=== PATIENT | female | born 1950 | race Caucasian/White ===

== ENCOUNTER 2017-06-25 20:42 | Emergency (ER) | payer MEDICARE, MEDICAID ==
[2017-06-25 20:54] VITALS: BMI 25.6
[2017-06-25 21:00] VITALS: TEMP 98.2
[2017-06-25 21:54] LABS: BASO % 0.7 % (0.0-2.0); EOS # 0.3 K/uL (0.0-0.7); EOS % 3.7 % (0.0-4.0); HEMOGLOBIN 9.8 g/dL (11.0-16.0); LYMPH # 2.1 K/uL (1.0-4.3); LYMPH % 30.7 % (20.0-40.0); MEAN CELL VOLUME 79.6 fL (81.0-99.0); MEAN CORPUSCULAR HEMOGLOBIN 25.4 pg (27.0-31.0); MEAN CORPUSCULAR HGB CONC 31.9 g/dL (33.0-37.0); MEAN PLATELET VOLUME 7.2 fL (7.2-11.7); MONO # 0.5 K/uL (0.0-0.8); MONO % 7.6 % (0.0-10.0); NEUT % 57.3 % (50.0-75.0); NRBC % 0.1 % (0.0-2.0); RBC 3.85 Mil/uL (3.80-5.20); WHITE BLOOD COUNT 6.9 K/uL (4.8-10.8)
[2017-06-25 22:05] LABS: ALBUMIN 4.3 g/dL (3.5-5.0); ALT/SGPT 24 U/L (9-52); AST/SGOT 45 U/L (14-36); BLOOD UREA NITROGEN 31 mg/dL (7-17); CALCIUM 9.4 mg/dl (8.6-10.4); GFR AFRICAN-AMERICAN > 60; GFR NON-AFRICAN AMERICAN 50
[2017-06-25 22:07] LABS: PROTHROMBIN TIME 10.7 SECONDS (9.7-12.2)
[2017-06-25 23:32] VITALS: BP 114/76; PULSE 68; RESP 16; O2SAT 100
--- NOTE | 2017-06-26 00:22 | C.PDOC ---
History Of Present Illness 67 year old female with a Hx of panic attacks and anxiety presents to the ER with a complaint of a panic attack and anxiety episode that occurred earlier this evening. Patient was taking on the phone with a relative, they began to argue which triggered the panic attack and anxiety. Patient has had multiple episodes in the past; currently, she has no complaints. Chief Complaint (Nursing): Lower Extremity Problem/Injury History Per: Patient History/Exam Limitations: no limitations Onset/Duration Of Symptoms: Hrs Current Symptoms Are (Timing): Gone Recent travel outside of the [place]: No Past Medical History Reviewed: Historical Data, Nursing Documentation, Vital Signs Vital Signs: Last Vital Signs Temp 98.2 F 06/25/17 23:30 Pulse 68 06/25/17 23:30 Resp 16 06/25/17 23:30 BP 114/76 06/25/17 23:30 Pulse Ox 100 06/26/17 00:26 - Medical History PMH: Anemia, Anxiety, Arthritis, Bronchitis, Diabetes, HTN, Hypercholesterolemia , Hyperlipidemia, Seizures (Last July) Surgical History: Appendectomy Family History: States: Unknown Family Hx - Social History Hx Tobacco Use: No Hx Alcohol Use: No Hx Substance Use: No - Immunization History Hx Tetanus Toxoid Vaccination: No Hx Influenza Vaccination: No Hx Pneumococcal Vaccination: No Review Of Systems Constitutional: Negative for: Fever, Chills Cardiovascular: Negative for: Chest Pain, Palpitations Respiratory: Negative for: Cough, Shortness of Breath Gastrointestinal: Negative for: Nausea, Vomiting Psych: Positive for: Anxiety, Other (Panic attack) Physical Exam - Physical Exam Appears: Non-toxic Skin: Normal Color, Warm, Dry Head: Atraumatic, Normacephalic Eye(s): bilateral: Normal Inspection Oral Mucosa: Moist Chest: Symmetrical, No Tenderness Cardiovascular: Rhythm Regular Respiratory: Normal Breath Sounds, No Rales, No Rhonchi, No Wheezing Gastrointestinal/Abdominal: Soft, No Tenderness Neurological/Psych: Oriented x3, Normal Speech ED Course And Treatment - Laboratory Results Result Diagrams: 06/25/17 21:49 06/25/17 21:49 ECG: Interpreted By Me, Viewed By Me ECG Rhythm: Sinus Rhythm ECG Interpretation: Normal Rate From EC O2 Sat by Pulse Oximetry: 100 (Room air) Pulse Ox Interpretation: Normal Progress Note: Blood work ordered. Toradol administered. Disposition - Disposition Referrals: Ana Mendes MD [Staff Provider] - Disposition: HOME/ ROUTINE Disposition Time: 23:10 Condition: GOOD Additional Instructions: Thank you for letting us take care of you today. The emergency medical care you received today was directed at your acute symptoms. If you were prescribed any medication, please fill it and take as directed. It may take several days for your symptoms to resolve. Return to the Emergency Department if your symptoms worsen, do not improve, or if you have any other problems. Please contact your doctor or call one of the physicians/clinics you have been referred to that are listed on the Patient Visit Information form that is included in your discharge packet. Bring any paperwork you were given at discharge with you along with any medications you are taking to your follow up visit. Our treatment cannot replace ongoing medical care by a primary care provider (PCP) outside of the emergency department. Thank you for allowing the [facility] team to be part of your care today. Follow up with your primary care doctor in 2-3 days for re-evaluation and further management. Instructions: Generalized Anxiety Disorder (DC) Forms: [employer] (Frisian) - Clinical Impression Clinical Impression: Anxiety - Scribe Statement The provider has reviewed the documentation as recorded by the Scribe Domo Canchola All medical record entries made by the Scribe were at my direction and personally dictated by me. I have reviewed the chart and agree that the record accurately reflects my personal performance of the history, physical exam, medical decision making, and the department course for this patient. I have also personally directed, reviewed, and agree with the discharge instructions and disposition.
--- NOTE | 2017-06-26 15:27 | CARD ---
APPROVED REPORT EKG Measurement Heart [id number] <Conclusion> Normal sinus rhythm Normal ECG
== END 2017-06-25 23:47 | disposition home or self-care (01) ==
LOC: C.ER 20:42
DX: F41.9 Anxiety disorder, unspecified (principal); I10 Essential (primary) hypertension; E78.00 Pure hypercholesterolemia, unspecified; E11.9 Type 2 diabetes mellitus without complications
CPT/HCPCS: 80053; 82948; 85025; 85610; 85730; 93005; 96374; 99285; J1885

== ENCOUNTER 2017-07-24 03:53 | Emergency (ER) | payer MEDICARE, MEDICAID ==
[2017-07-24 03:53] VITALS: BMI 25.6
[2017-07-24] MEDS ORDERED: Sodium Chloride 0.9% 1,000 ML IV ONE (04:49)
--- NOTE | 2017-07-24 04:59 | C.PDOC ---
History Of Present Illness 67 year old with PMHx of DM presents to the ED c/o headache that radiates down to her right neck and shoulder for the past 1 week. Patient reports today at 03: 00 pain worsened. Patient reports headache is associated blurry vision, chills, nasal congestion. Patient denies injury, fall, trauma, cough, runny nose, photophobia, numbness, weakness. Time Seen by Provider: 07/24/17 04:25 Chief Complaint (Nursing): Headache History Per: Patient History/Exam Limitations: no limitations Onset/Duration Of Symptoms: Days Current Symptoms Are (Timing): Still Present Quality: "Pain" Preceeding Symptoms: None Associated Symptoms: Blurred Vision Recent travel outside of the [place]: No Additional History Per: Patient Past Medical History Reviewed: Historical Data, Nursing Documentation, Vital Signs Vital Signs: Last Vital Signs Temp 98.5 F 07/24/17 06:30 Pulse 83 07/24/17 06:30 Resp 16 07/24/17 06:30 BP 139/72 07/24/17 06:30 Pulse Ox 97 07/24/17 06:57 - Medical History PMH: Anemia, Anxiety, Arthritis, Bronchitis, Diabetes, HTN, Hypercholesterolemia , Hyperlipidemia, Seizures (Last July) Denies: Chronic Kidney Disease Surgical History: Appendectomy Family History: States: Unknown Family Hx - Social History Hx Tobacco Use: No Hx Alcohol Use: No Hx Substance Use: No - Immunization History Hx Tetanus Toxoid Vaccination: No Hx Influenza Vaccination: No Hx Pneumococcal Vaccination: No Review Of Systems Constitutional: Positive for: Chills. Negative for: Fever ENT: Positive for: Ear Pain, Nose Discharge, Nose Congestion. Negative for: Throat Pain, Throat Swelling Cardiovascular: Negative for: Chest Pain Respiratory: Negative for: Cough, Shortness of Breath Gastrointestinal: Negative for: Nausea, Vomiting, Abdominal Pain Musculoskeletal: Positive for: Neck Pain, Shoulder Pain Skin: Negative for: Rash Neurological: Positive for: Headache. Negative for: Weakness, Numbness, Dizziness Physical Exam - Physical Exam Appears: Non-toxic, No Acute Distress Skin: Normal Color, Warm, Dry, No Rash Head: Atraumatic, Normacephalic, Swelling (minimal bilateral periorbital region) Eye(s): bilateral: Normal Inspection, PERRL, EOMI Ear(s): Bilateral: Normal Nose: No Discharge Oral Mucosa: Moist Throat: Normal, No Erythema, No Exudate Neck: Normal ROM, Supple Lymphatic: Adenopathy (anterior cervical lymphadenopathy) Chest: Symmetrical Cardiovascular: Rhythm Regular, No Friction Rub, No Murmur Respiratory: Normal Breath Sounds, No Rales, No Rhonchi, No Wheezing Gastrointestinal/Abdominal: Soft, No Tenderness, No Guarding, No Rebound Back: Normal Inspection, No CVA Tenderness Extremity: Normal ROM, No Tenderness, Capillary Refill (< 2 seconds), No Swelling, Other (chronic skin changes in B/L legs) Extremity: Bilateral: Atraumatic Pulses: Left Dorsalis Pedis: Normal, Right Dorsalis Pedis: Normal Neurological/Psych: Oriented x3, Normal Speech, Normal Motor, Other (no focal deficits) ED Course And Treatment - Laboratory Results Result Diagrams: 07/24/17 05:09 07/24/17 05:09 O2 Sat by Pulse Oximetry: 97 (ON RA) Pulse Ox Interpretation: Normal - CT Scan/US CT head Other Rad Studies (CT/US): Read By Radiologist, Radiology Report Reviewed CT/US Interpretation: FINDINGS: Brain: Possible bilateral ophthalmic surgery. Mild cerebral and cerebellar volume loss. Minimal. hypodensity is seen in the periventricular cerebral white matter. No hemorrhage. Ventricles: Unremarkable. No ventriculomegaly. Bones/joints: Mandibular partial dentures in place. No acute fracture. Soft tissues: Unremarkable. Sinuses: Left sphenoid and right posterior ethmoid sinus mucus retention cyst and/or polyp. Patchy. sinus disease. Mastoid air cells: Patchy mass. IMPRESSION: No evidence of an acute intracranial hemorrhage, midline shift or mass effect is identified. Thank you for allowing us to participate in the care of your patient. Dictated and Authenticated by: Joon Landers MD. 07/24/2017 5:50 AM Eastern Time ([place] & [place]) CT neck Other Rad Studies (CT/US): Read By Radiologist, Radiology Report Reviewed CT/US Interpretation: FINDINGS: Nasopharynx: Prominent soft tissue in the nasopharynx which can represent a benign cyst. Oropharynx: Unremarkable. No significant tonsillar enlargement. Hypopharynx: Unremarkable. Larynx: Unremarkable. Normal epiglottis. Trachea: Unremarkable. Retropharyngeal space : Unremarkable. Submandibular/parotid glands: There are bilateral parotid salivary gland calcifications. There is fatty. infiltration of bilateral parotid and submandibular salivary glands. Thyroid: Heterogeneous enlargement of thyroid gland. Bones/joints: No acute fracture. Soft tissues: Unremarkable. Vasculature: No acute findings. Lymph nodes: Submandibular lymph nodes. Bilateral cervical chain lymph nodes. Dental: Edentulous maxilla. Esophagus: Nonspecific gaseous distention of the esophagus. Correlation with clinical data is. recommended if presbyesophagus is clinically suspected. Lung apices: The visualized portions of lung apices are clear. IMPRESSION: No acute findings. Thank you for allowing us to participate in the care of your patient. Dictated and Authenticated by: Joon Landers MD. 07/24/2017 6:17 AM Eastern Time ([place] & [place]) CT sinuses Other Rad Studies (CT/US): Read By Radiologist, Radiology Report Reviewed CT/US Interpretation: FINDINGS: Maxillary sinuses: Unremarkable. No air-fluid levels. Sphenoid sinuses: There is a large left sphenoid sinus because retention cyst and/or polyp. No airfluid. levels. Frontal sinuses: Unremarkable. No air-fluid levels. Ethmoid air cells: Small right posterior ethmoid mucus retention cyst and/or polyp. No air-fluid. levels. Nasal cavity/ septum: No acute findings. Mastoid air cells: There is evidence of right mastoid surgery. Patchy right mastoid disease. Bones/joints: No acute fracture. Soft tissues: Bilateral parotid salivary gland calcifications. Fatty infiltration of the parotid glands. Orbits: There is evidence of bilateral eye surgery. The visualized portions of globe appears intact. Dental: Edentulous maxilla. Ostiomeatal units: The ostiomeatal units are patent bilaterally. There is mild narrowing of the left. ostiomeatal unit. Mild hazy sinus disease. IMPRESSION: 1. Sinus disease as described. No definite air-fluid levels are identified. Thank you for allowing us to participate in the care of your patient. Dictated and Authenticated by: Joon Landers MD. 07/24/2017 6:14 AM Eastern Time ([place] & [place]) Progress Note: Plan: - CT head. - VBG. - Labs. - CXR. - Reglan 10 mg IV. - IV fluids. - Toradol 15 mg IM. - Urine culture. - UA Medical Decision Making Medical Decision Making: The case was discussed with Dr. Mendes (PMD) who states the patient does not require admission at this time as the patient is at her baseline. Patient has normal vitals, normal WBC, but lactate of 3, Patient does not have signs of sepsis at this time. The patient was found to be hypokalemic and anemic which is the patient's baseline according to the PMD, Dr. Mendes. Patient was found to have sinus disease on CT and will treat. CT is otherwise unremarkable. On re-exam, the patient reports improvement of symptoms. Lungs are CTA, heart is RRR, ambulatory in the ED with steady gait. Abdomen is soft, non-tender and the patient is tolerating PO well. Disposition - Disposition Referrals: Ana Mendes MD [Staff Provider] - Disposition: HOME/ ROUTINE Disposition Time: 06:52 Condition: FAIR Additional Instructions: Follow up with Dr. Mendes within 1-2 days without fail. Return tothe ED as soon as possible if worsened. Prescriptions: Acetaminophen/Butalbital/Caf [Fioricet] 1 tab PO TID PRN #20 tab PRN Reason: Headache Amoxicillin/Clavulanate [Augmentin 875 MG-125 MG] 1 tab PO BID #14 tab Loratadine [Claritin] 10 mg PO DAILY #10 tab Instructions: Hypokalemia (DC), Sinusitis, Adult (DC) Forms: [employer] (Wolof) - Clinical Impression Clinical Impression: Sinusitis, Hypokalemia, Anemia - PA / AUDIT REVIEWER / Resident Statement MD/DO has reviewed & agrees with the documentation as recorded. - Scribe Statement The provider has reviewed the documentation as recorded by the Scribe Channing Merchant All medical record entries made by the Aguilar[place]milton were at my direction and personally dictated by me. I have reviewed the chart and agree that the record accurately reflects my personal performance of the history, physical exam, medical decision making, and the department course for this patient. I have also personally directed, reviewed, and agree with the discharge instructions and disposition.
[2017-07-24 05:13] LABS: EOS # 0.3 K/uL (0.0-0.7)
[2017-07-24 05:24] LABS: PROTHROMBIN TIME 10.5 SECONDS (9.7-12.2)
[2017-07-24 05:25] LABS: VENOUS BLOOD GAS BASE EXCESS 4.9 mmol/L (0.0-2.0); VENOUS BLOOD GAS PCO2 53 mmHg (40-60); VENOUS BLOOD GAS PO2 30 mm/Hg (30-55); VENOUS BLOOD PH 7.38 (7.32-7.43)
[2017-07-24 05:27] LABS: BASO % 0.7 % (0.0-2.0); HEMOGLOBIN 8.9 g/dL (11.0-16.0); LYMPH # 1.8 K/uL (1.0-4.3); LYMPH % 28.8 % (20.0-40.0); MEAN CELL VOLUME 78.2 fL (81.0-99.0); MEAN CORPUSCULAR HEMOGLOBIN 25.4 pg (27.0-31.0); MEAN CORPUSCULAR HGB CONC 32.5 g/dL (33.0-37.0); MEAN PLATELET VOLUME 7.1 fL (7.2-11.7); MONO # 0.4 K/uL (0.0-0.8); MONO % 6.7 % (0.0-10.0); NEUT # 3.8 K/uL (1.8-7.0); NEUT % 58.8 % (50.0-75.0); NRBC % 0.1 % (0.0-2.0); RBC 3.52 Mil/uL (3.80-5.20); WHITE BLOOD COUNT 6.4 K/uL (4.8-10.8)
[2017-07-24] MEDS ORDERED: Sodium Chloride 0.9% 0 ML IV ONE (05:44)
[2017-07-24] MEDS ORDERED: Sodium Chloride 0.9% 1,000 ML ONE (05:44)
[2017-07-24] MEDS ORDERED: Sodium Chloride 0.9% 100 ML ONE (05:45)
--- NOTE | 2017-07-24 05:50 | CT ---
EXAM: CT Head Without Intravenous Contrast CLINICAL HISTORY: 67 years old, female; Pain; Headache; Headache not specified; Additional info: Headache, dizziness TECHNIQUE: Axial computed tomography images of the head/brain without intravenous contrast. All CT scans at this facility use one or more dose reduction techniques, viz.: automated exposure control; ma/kV adjustment per patient size (including targeted exams where dose is matched to indication; i.e. head); or iterative reconstruction technique. 311 images are submitted. Axial images are submitted in brain and bone windows. Coronal and sagittal reformatted images were created and reviewed. Axial reformatted images were created and reviewed. COMPARISON: CT - HEAD W/O CONTRAST 2015-01-26 23:55 FINDINGS: Brain: Possible bilateral ophthalmic surgery. Mild cerebral and cerebellar volume loss. Minimal hypodensity is seen in the periventricular cerebral white matter. No hemorrhage. Ventricles: Unremarkable. No ventriculomegaly. Bones/joints: Mandibular partial dentures in place. No acute fracture. Soft tissues: Unremarkable. Sinuses: Left sphenoid and right posterior ethmoid sinus mucus retention cyst and/or polyp. Patchy sinus disease. Mastoid air cells: Patchy mastoid disease. Possible evidence for right mastoid surgery. Dental: Edentulous maxilla. IMPRESSION: No evidence of an acute intracranial hemorrhage, midline shift or mass effect is identified.
[2017-07-24 05:58] LABS: ALB/GLOB RATIO 1.1 (1.0-2.1); ALBUMIN 4.5 g/dL (3.5-5.0); ALT/SGPT 23 U/L (9-52); AST/SGOT 37 U/L (14-36); BLOOD UREA NITROGEN 20 mg/dL (7-17); CALCIUM 9.3 mg/dl (8.6-10.4); GFR AFRICAN-AMERICAN > 60; GFR NON-AFRICAN AMERICAN > 60
[2017-07-24] MEDS ORDERED: Potassium Chloride 20 mEq/15 ml LIQ UD PO STA (06:01)
[2017-07-24] MEDS ORDERED: Potassium Chloride 20 mEq/15 ml LIQ UD ONE (06:08)
--- NOTE | 2017-07-24 06:14 | CT ---
EXAM: CT Maxillofacial face and Sinuses Without Intravenous Contrast CLINICAL HISTORY: 67 years old, female; Pain and signs and symptoms; Mass, lump, or swelling; Location not specified; Face pain; Additional info: Pain and swelling to the face, R/O sinusitis TECHNIQUE: Computed tomography images of the face and maxillofacial sinuses without intravenous contrast. All CT scans at this facility use one or more dose reduction techniques, viz.: automated exposure control; ma/kV adjustment per patient size (including targeted exams where dose is matched to indication; i.e. head); or iterative reconstruction technique. 255 images are submitted. Coronal and sagittal reformatted images were created and reviewed of the face and sinuses. COMPARISON: No relevant prior studies available. FINDINGS: Maxillary sinuses: Unremarkable. No air-fluid levels. Sphenoid sinuses: There is a large left sphenoid sinus because retention cyst and/or polyp. No air-fluid levels. Frontal sinuses: Unremarkable. No air-fluid levels. Ethmoid air cells: Small right posterior ethmoid mucus retention cyst and/or polyp. No air-fluid levels. Nasal cavity/septum: No acute findings. Mastoid air cells: There is evidence of right mastoid surgery. Patchy right mastoid disease. Bones/joints: No acute fracture. Soft tissues: Bilateral parotid salivary gland calcifications. Fatty infiltration of the parotid glands. Orbits: There is evidence of bilateral eye surgery. The visualized portions of globe appears intact. Dental: Edentulous maxilla. Ostiomeatal units: The ostiomeatal units are patent bilaterally. There is mild narrowing of the left ostiomeatal unit. Mild hazy sinus disease. IMPRESSION: 1. Sinus disease as described. No definite air-fluid levels are identified.
--- NOTE | 2017-07-24 06:18 | CT ---
EXAM: CT Neck Without Intravenous Contrast CLINICAL HISTORY: 67 years old, female; Pain and signs and symptoms; Mass, lump, or swelling in neck; Neck pain; Additional info: Pain and swelling to the left side of the neck TECHNIQUE: Axial computed tomography images of the neck without intravenous contrast. All CT scans at this facility use one or more dose reduction techniques, viz.: automated exposure control; ma/kV adjustment per patient size (including targeted exams where dose is matched to indication; i.e. head); or iterative reconstruction technique. 255 images are submitted. Coronal and sagittal reformatted images were created and reviewed. COMPARISON: No relevant prior studies available. FINDINGS: Nasopharynx: Prominent soft tissue in the nasopharynx which can represent a benign cyst. Oropharynx: Unremarkable. No significant tonsillar enlargement. Hypopharynx: Unremarkable. Larynx: Unremarkable. Normal epiglottis. Trachea: Unremarkable. Retropharyngeal space: Unremarkable. Submandibular/parotid glands: There are bilateral parotid salivary gland calcifications. There is fatty infiltration of bilateral parotid and submandibular salivary glands. Thyroid: Heterogeneous enlargement of thyroid gland. Bones/joints: No acute fracture. Soft tissues: Unremarkable. Vasculature: No acute findings. Lymph nodes: Submandibular lymph nodes. Bilateral cervical chain lymph nodes. Dental: Edentulous maxilla. Esophagus: Nonspecific gaseous distention of the esophagus. Correlation with clinical data is recommended if presbyesophagus is clinically suspected. Lung apices: The visualized portions of lung apices are clear. IMPRESSION: No acute findings.
[2017-07-24 06:32] VITALS: TEMP 98.5
[2017-07-24 06:52] VITALS: O2SAT 97
--- NOTE | 2017-07-24 07:52 | RAD ---
HISTORY: Sepsis Patient COMPARISON: 12/28/2016 FINDINGS: LUNGS: No interval consolidation. Lung volumes slightly less than before PLEURA: No significant pleural effusion identified, no pneumothorax apparent. CARDIOVASCULAR: Heart size probably top-normal -similar OSSEOUS STRUCTURES: No significant abnormalities. VISUALIZED UPPER ABDOMEN: Normal. OTHER FINDINGS: None. IMPRESSION: No interval active disease.
[2017-07-24 08:03] VITALS: BP 128/74; PULSE 68
[2017-07-24 08:24] VITALS: RESP 18
== END 2017-07-24 08:24 | disposition home or self-care (01) ==
LOC: C.ER 03:53
DX: J32.9 Chronic sinusitis, unspecified (principal); E87.6 Hypokalemia; D64.9 Anemia, unspecified; I10 Essential (primary) hypertension; E11.9 Type 2 diabetes mellitus without complications; E78.00 Pure hypercholesterolemia, unspecified
CPT/HCPCS: 70450; 70486; 70490; 71045; 80053; 82803; 82948; 83735; 84100; 85025; 85610; 85730; 96361; 96374; 96375; 99285; J1885; J2765; J3480; J7030

== ENCOUNTER 2018-03-20 10:31 | Outpatient (CLI) | payer MEDICARE, MEDICAID | END 2018-03-20 10:32 | disposition home or self-care (01) | LOC: C.LAB 10:31 | DX: N18.3 Chronic kidney disease, stage 3 (moderate) (principal) ==

== ENCOUNTER 2018-05-10 09:33 | Observation (INO) | payer MEDICARE, MEDICAID | END 2018-05-11 14:42 | disposition home or self-care (01) | LOC: C.ER 09:33 → C.9E 11:56 → C.6T 20:03 ==

== ENCOUNTER 2018-06-11 10:01 | Outpatient (CLI) | payer MEDICARE, MEDICAID | END 2018-06-11 13:40 | disposition still patient (30) | LOC: C.LAB 10:01 ==

== ENCOUNTER 2018-06-11 13:41 | Emergency (ER) | payer MEDICARE, MEDICAID ==
[2018-06-11 13:41] VITALS: BMI 25.6
--- NOTE | 2018-06-11 14:42 | C.PDOC ---
History Of Present Illness 68 year old female sent to ED by her account liaison hospice (Dr. Kimball) for evaluation of elevated potassium levels noticed on out-patient blood work done today. Patient reports that she has been experiencing headache and productive cough for 2-3 days. She denies chest pain, SOB, fever, palpitations, abdominal pain, nausea/vomiting. Time Seen by Provider: 06/11/18 13:49 Chief Complaint (Nursing): Abnormal Labs History Per: Patient History/Exam Limitations: no limitations Onset/Duration Of Symptoms: Days (2-3) Current Symptoms Are (Timing): Still Present Past Medical History Reviewed: Historical Data, Nursing Documentation, Vital Signs Vital Signs: Last Vital Signs Temp 97.7 F 06/11/18 13:43 Pulse 63 06/11/18 13:43 Resp 20 06/11/18 13:43 BP 159/84 H 06/11/18 13:43 Pulse Ox 99 06/11/18 13:43 - Medical History PMH: Anemia, Anxiety, Arthritis, Bronchitis, Diabetes, HTN, Hypercholesterolemia, Hyperlipidemia, Seizures (Last July) Surgical History: Appendectomy Family History: States: No Known Family Hx - Social History Hx Tobacco Use: No Hx Alcohol Use: No Hx Substance Use: No - Immunization History Hx Tetanus Toxoid Vaccination: No Hx Influenza Vaccination: No Hx Pneumococcal Vaccination: No Review Of Systems Constitutional: Negative for: Fever, Chills, Weakness Cardiovascular: Negative for: Chest Pain Respiratory: Positive for: Cough, Sputum. Negative for: Shortness of Breath Gastrointestinal: Negative for: Nausea, Vomiting, Abdominal Pain, Diarrhea Genitourinary: Negative for: Dysuria, Hematuria Neurological: Positive for: Headache Physical Exam - Physical Exam Appears: Well, Non-toxic, No Acute Distress Skin: Normal Color, Warm, Dry, No Rash Oral Mucosa: Moist Neck: Supple Cardiovascular: Rhythm Regular Respiratory: Normal Breath Sounds, No Accessory Muscle Use, No Rales, No Rhonchi, No Wheezing Gastrointestinal/Abdominal: Normal Exam, Bowel Sounds, Soft, No Tenderness Extremity: No Pedal Edema, No Calf Tenderness Neurological/Psych: Oriented x3 ED Course And Treatment - Laboratory Results Result Diagrams: 06/11/18 14:32 06/11/18 15:46 ECG: Interpreted By Me, Viewed By Me (NSR 63 bpm, normal axis, no acute ST/T wave changes) ECG Interpretation: Normal O2 Sat by Pulse Oximetry: 99 (RA) Pulse Ox Interpretation: Normal - Other Rad CXR X-Ray: Interpreted by Me, Viewed By Me Interpretation: IMPRESSION: Possible atelectasis and/or infiltrate right middle lobe. Progress Note: Blood work, CXR ordered and reviewed. Patient given hyperkalemia cocktail in the ED. Plan to repeat K at 7pm as per Dr. Kimball. - Physician Consult Information Physician Contacted: Jeff Kimball Outcome Of Conversation: Discussed patient with her account liaison hospice, he agrees with hyperkalemia cocktail and would like K repeated later. If K drops and is closer to 5, patient can later be discharged , may possiby increase Veltassa dose to BID. Discussed patient with PMD Dr. Mendes, who is in agreement. Disposition - Disposition Disposition Time: 19:00 Condition: STABLE Prescriptions: Azithromycin 1 tab PO DAILY #6 tab Forms: [employer] (Sinhala) - Clinical Impression Clinical Impression: Bronchitis, Hyperkalemia - Scribe Statement The provider has reviewed the documentation as recorded by the Scribe (Mery Rodríguez) All medical record entries made by the Scribe were at my direction and personally dictated by me. I have reviewed the chart and agree that the record accurately reflects my personal performance of the history, physical exam, medical decision making, and the department course for this patient. I have also personally directed, reviewed, and agree with the discharge instructions and disposition. Physician Patient Turnover Patient Signed Over To: Olivia Truong Handoff Comments: pending repeat K, discuss with nephrology
[2018-06-11 14:51] LABS: BASO % 0.6 % (0.0-2.0); EOS # 0.1 K/uL (0.0-0.7); EOS % 2.9 % (0.0-4.0); HEMOGLOBIN 8.8 g/dL (11.0-16.0); LYMPH # 1.2 K/uL (1.0-4.3); LYMPH % 25.5 % (20.0-40.0); MEAN CELL VOLUME 81.5 fL (81.0-99.0); MEAN CORPUSCULAR HGB CONC 31.9 g/dL (33.0-37.0); MEAN PLATELET VOLUME 7.4 fL (7.2-11.7); MONO # 0.2 K/uL (0.0-0.8); MONO % 5.2 % (0.0-10.0); NEUT # 3.2 K/uL (1.8-7.0); NEUT % 65.8 % (50.0-75.0); NRBC % 0.1 % (0.0-2.0); RBC 3.37 Mil/uL (3.80-5.20); RED CELL DISTRIBUTION WIDTH 13.7 % (11.5-14.5); WHITE BLOOD COUNT 4.8 K/uL (4.8-10.8)
--- NOTE | 2018-06-11 15:14 | RAD ---
Date of service: 06/11/2018 HISTORY: COUGH COMPARISON: Made with chest 05/10/2018. TECHNIQUE: 1 view obtained. FINDINGS: LUNGS: Possible atelectasis and/or infiltrate right middle lobe PLEURA: No significant pleural effusion identified, no pneumothorax apparent. CARDIOVASCULAR: No aortic atherosclerotic calcification present. Normal cardiac size. No pulmonary vascular congestion. OSSEOUS STRUCTURES: No significant abnormalities. VISUALIZED UPPER ABDOMEN: Normal. OTHER FINDINGS: None. IMPRESSION: Possible atelectasis and/or infiltrate right middle lobe.
[2018-06-11 16:10] LABS: ALB/GLOB RATIO 1.2 (1.0-2.1); ALBUMIN 4.3 g/dL (3.5-5.0); CALCIUM 9.9 mg/dl (8.6-10.4)
[2018-06-11] MEDS ORDERED: Calcium Gluconate 4.65 MEQ in Dextrose 5% In Water 100 ML IV ONE (16:20)
[2018-06-11] MEDS ORDERED: (Novolin R) Insulin Human Regular 100 units/ml vial IVP ONE (16:20)
[2018-06-11] MEDS ORDERED: Sodium Bicarbonate (8.4%) 50 Meq Syringe IVP ONE (16:21)
[2018-06-11] MEDS ORDERED: Dextrose 50% SYRINGE Inj (50 ml) IVP STA (16:21)
[2018-06-11] MEDS ORDERED: Albuterol 0.083% Inhal Sol (2.5 mg/3 mL) UD IH STA (16:38)
[2018-06-11] MEDS ORDERED: Calcium Gluconate 4.65 mEq/10 ml Inj ONE (16:42)
[2018-06-11] MEDS ORDERED: Dextrose 50% SYRINGE Inj (50 ml) ONE (16:43)
[2018-06-11] MEDS ORDERED: Sodium Bicarbonate (8.4%) 50 mEq Vial ONE (16:43)
[2018-06-11] MEDS ORDERED: (Novolin R) Insulin Human Regular 100 units/ml vial ONE (16:48)
[2018-06-11] MEDS ORDERED: Albuterol 0.083% Inhal Sol (2.5 mg/3 mL) UD ONE (17:14)
[2018-06-11 20:04] VITALS: BP 149/70; PULSE 61; RESP 12; TEMP 97.6; O2SAT 100
--- NOTE | 2018-06-13 14:04 | CARD ---
APPROVED REPORT Date of service: 06/11/2018 EKG Measurement Heart [id number] QTc0 <Conclusion> No QRS complexes found, no ECG analysis possible
== END 2018-06-11 20:44 | disposition home or self-care (01) ==
LOC: C.ER 13:41
DX: E87.5 Hyperkalemia (principal); J40 Bronchitis, not specified as acute or chronic
CPT/HCPCS: 36415; 71045; 80053; 84132; 85025; 93005; 94640; 96365; 96375; 99285; J0610

== ENCOUNTER 2018-06-17 10:13 | Outpatient (CLI) | payer MEDICARE, MEDICAID | END 2018-06-17 10:14 | disposition home or self-care (01) | LOC: C.LAB 10:13 | DX: E87.5 Hyperkalemia (principal); E08.321 Diabetes mellitus due to underlying condition with mild nonproliferative diabetic retinopathy with macular edema ==

== ENCOUNTER 2018-07-17 10:04 | Outpatient (CLI) | payer MEDICARE, MEDICAID | END 2018-07-17 10:05 | disposition home or self-care (01) | LOC: C.VASC 10:04 ==

== ENCOUNTER 2018-07-20 11:10 | Emergency (ER) | payer MEDICARE, MEDICAID ==
[2018-07-20 11:10] VITALS: BMI 25.6
[2018-07-20] MEDS ORDERED: Albuterol-Ipratrop 3 mg / 0.5 (3 ml) UD INH STA (11:50)
[2018-07-20] MEDS ORDERED: Albuterol-Ipratrop 3 mg / 0.5 (3 ml) UD ONE (11:57)
--- NOTE | 2018-07-20 12:11 | C.PDOC ---
History Of Present Illness 68 year old female with a hx of HTN and HLD presents for evaluation of LT sided CP pain associated with mild cough for a few days. Pt notes LT sided CP radiates to the the LT shoulder. Reports having a (-) stress test in 2016. Denies fever, chills, nausea, vomiting, diarrhea, numbness, tingling, and any other associated symptoms. Time Seen by Provider: 07/20/18 11:34 Chief Complaint (Nursing): Chest Pain History Per: Patient History/Exam Limitations: no limitations Onset/Duration Of Symptoms: Days Current Symptoms Are (Timing): Still Present Associated Symptoms: Other (mild cough. ) Recent travel outside of the [place]: No Past Medical History Reviewed: Historical Data, Nursing Documentation, Vital Signs Vital Signs: Last Vital Signs Temp 98.6 F 07/20/18 11:13 Pulse 71 07/20/18 11:13 Resp 12 07/20/18 11:35 BP 150/82 07/20/18 11:13 Pulse Ox 98 07/20/18 11:35 Primary Care Provider: Ana Mendes - Medical History PMH: Anemia, Anxiety, Arthritis, Bronchitis, Diabetes, HTN, Hypercholesterolemia, Hyperlipidemia, Seizures (Last July) Denies: Chronic Kidney Disease Surgical History: Appendectomy Family History: States: Unknown Family Hx - Social History Hx Tobacco Use: No Hx Alcohol Use: No Hx Substance Use: No - Immunization History Hx Tetanus Toxoid Vaccination: No Hx Influenza Vaccination: No Hx Pneumococcal Vaccination: No Review Of Systems Except As Marked, All Systems Reviewed And Found Negative. Constitutional: Negative for: Fever, Chills Cardiovascular: Positive for: Chest Pain (left-sided. ) Respiratory: Positive for: Cough (mild. secondary to CP. ) Gastrointestinal: Negative for: Nausea, Vomiting, Diarrhea Neurological: Negative for: Weakness, Numbness, Incoordination Physical Exam - Physical Exam Appears: Non-toxic, No Acute Distress Skin: Warm, Dry Head: Atraumatic Eye(s): bilateral: Normal Inspection Oral Mucosa: Moist Neck: Normal ROM, Supple Chest: Symmetrical, No Deformity Cardiovascular: Rhythm Regular, No Murmur Respiratory: No Rales, No Rhonchi, Wheezing (scattered. ) Gastrointestinal/Abdominal: Normal Exam, Soft, No Tenderness Extremity: Bilateral: Atraumatic, Normal Color And Temperature, Normal ROM Neurological/Psych: Oriented x3, Normal Speech, Normal Cognition ED Course And Treatment - Laboratory Results Result Diagrams: 07/20/18 12:16 07/20/18 12:16 ECG: Interpreted By Me, Viewed By Me ECG Rhythm: Sinus Rhythm Interpretation Of ECG: no STW wave changes Rate From EC O2 Sat by Pulse Oximetry: 98 (RA) Pulse Ox Interpretation: Normal Medical Decision Making Medical Decision Making: cp ro acs pna bronchitis. Initial plan: -EKG -Blood sent. -CXR -Duoneb -Urinalysis Progress/Update: Pt left AMA. no tachy no sob. pe unlikely. cxr neg as bruce d by me. trop neg. multiple cardiac risk factor request obs for cards eval, possible stresss. pt refesuse states will return with worsening. wheezing improve.d Disposition - Disposition Referrals: Jeff Lovell MD [Staff Provider] - Disposition: AGAINST MEDICAL ADVICE Disposition Time: 13:00 Condition: GOOD Additional Instructions: return toe r with worsening symptoms or concerns. Instructions: Chest Pain, Acute Bronchitis, Leaving Against Medical Advice Forms: [employer] ([place]) - Clinical Impression Clinical Impression: Chest pain - Scribe Statement The provider has reviewed the documentation as recorded by the Scribe (Imelda Matt) Provider Attestation: All medical record entries made by the Scribe were at my direction and personally dictated by me. I have reviewed the chart and agree that the record accurately reflects my personal performance of the history, physical exam, medical decision making, and the department course for this patient. I have also personally directed, reviewed, and agree with the discharge instructions and disposition.
[2018-07-20 12:23] LABS: BASO % 0.9 % (0.0-2.0); EOS # 0.2 K/uL (0.0-0.7); EOS % 4.2 % (0.0-4.0); HEMOGLOBIN 9.1 g/dL (11.0-16.0); LYMPH % 23.1 % (20.0-40.0); MEAN CELL VOLUME 82.3 fL (81.0-99.0); MEAN CORPUSCULAR HEMOGLOBIN 26.3 pg (27.0-31.0); MEAN PLATELET VOLUME 7.7 fL (7.2-11.7); MONO # 0.3 K/uL (0.0-0.8); MONO % 8.3 % (0.0-10.0); NEUT # 2.6 K/uL (1.8-7.0); NEUT % 63.5 % (50.0-75.0); RBC 3.47 Mil/uL (3.80-5.20); RED CELL DISTRIBUTION WIDTH 13.9 % (11.5-14.5); WHITE BLOOD COUNT 4.1 K/uL (4.8-10.8)
[2018-07-20 12:40] LABS: ALB/GLOB RATIO 1.1 (1.0-2.1); ALBUMIN 4.3 g/dL (3.5-5.0); ALT/SGPT 36 U/L (9-52); AST/SGOT 48 U/L (14-36); BLOOD UREA NITROGEN 40 mg/dL (7-17); CALCIUM 9.6 mg/dl (8.6-10.4); GFR NON-AFRICAN AMERICAN 35
[2018-07-20 12:47] LABS: PARTIAL THROMBOPLASTIN TIME 31.2 SECONDS (21-34); PROTHROMBIN TIME 11.3 SECONDS (9.7-12.2)
[2018-07-20 13:03] LABS: B-TYPE NATRIURETIC PEPTIDE 344 pg/mL (0-900)
[2018-07-20 13:23] LABS: SQUAMOUS EPITHIAL < 1 /hpf (0-5); URINE BILIRUBIN NEGATIVE (NEGATIVE); URINE BLOOD 1+ (NEGATIVE); URINE CLARITY Clear (Clear); URINE COLOR Straw (YELLOW); URINE GLUCOSE (UA) NORMAL (Normal); URINE LEUKOCYTE ESTERASE NEG Leu/uL (Negative); URINE PROTEIN 2+ mg/dL (NEGATIVE); URINE UROBILINOGEN NORMAL mg/dL (0.2-1.0)
[2018-07-20 13:40] VITALS: BP 162/70; PULSE 63; RESP 16; TEMP 97.5
[2018-07-20 14:32] VITALS: O2SAT 98
--- NOTE | 2018-07-20 20:47 | RAD ---
Date of service: 07/20/2018 PROCEDURE: CHEST RADIOGRAPH, 1 VIEW HISTORY: chest pain COMPARISON: None available. FINDINGS: LUNGS: Clear. PLEURA: No pneumothorax or pleural fluid seen. CARDIOVASCULAR: No aortic atherosclerotic calcification present. Normal. OSSEOUS STRUCTURES: No significant abnormalities. VISUALIZED UPPER ABDOMEN: Normal. OTHER FINDINGS: None. IMPRESSION: No active disease.
--- NOTE | 2018-07-24 00:11 | CARD ---
APPROVED REPORT Date of service: 07/20/2018 EKG Measurement Heart [id number] <Conclusion> Normal sinus rhythm Normal ECG
== END 2018-07-20 14:04 | disposition left against medical advice (07) ==
LOC: C.ER 11:10
DX: R07.9 Chest pain, unspecified (principal)